=== PATIENT | female | born 1965 | race Hispanic/Latino ===

== ENCOUNTER 2022-03-14 08:19 | Outpatient (CLI) | payer MEDICARE, MEDICAID | END 2022-03-14 08:20 | disposition home or self-care (01) | LOC: CSHWCC 08:19 | PROVIDERS: ATTEND Nurse Practitioner Family | DX: T81.89XD Other complications of procedures, not elsewhere classified, subsequent encounter (principal) | CPT/HCPCS: 97139; G0463; 99203 ==

== ENCOUNTER 2022-03-21 08:14 | Outpatient (CLI) | payer MEDICARE, MEDICAID | END 2022-03-21 08:15 | disposition home or self-care (01) | LOC: CSHWCC 08:14 | PROVIDERS: ATTEND Nurse Practitioner Family | DX: T81.89XD Other complications of procedures, not elsewhere classified, subsequent encounter (principal) | CPT/HCPCS: 11043; 97605 ==

== ENCOUNTER 2022-03-28 08:36 | Outpatient (CLI) | payer MEDICARE, MEDICAID | END 2022-03-28 08:37 | disposition home or self-care (01) | LOC: CSHWCC 08:36 | PROVIDERS: ATTEND Nurse Practitioner Family | DX: T81.89XD Other complications of procedures, not elsewhere classified, subsequent encounter (principal) ==

== ENCOUNTER 2022-04-12 14:50 | Outpatient (CLI) | payer MEDICARE, MEDICAID | END 2022-04-12 14:51 | disposition home or self-care (01) | LOC: CSHWCC 14:50 | PROVIDERS: ATTEND Nurse Practitioner Family | DX: T81.89XD Other complications of procedures, not elsewhere classified, subsequent encounter (principal); Z89.432 Acquired absence of left foot ==

== ENCOUNTER 2022-05-25 10:02 | Outpatient (CLI) | payer MEDICARE, MEDICAID | END 2022-05-25 10:03 | disposition home or self-care (01) | LOC: CSHWCC 10:02 | PROVIDERS: ATTEND Nurse Practitioner Family | DX: T81.89XD Other complications of procedures, not elsewhere classified, subsequent encounter (principal); E11.621 Type 2 diabetes mellitus with foot ulcer; L97.429 Non-pressure chronic ulcer of left heel and midfoot with unspecified severity | CPT/HCPCS: 97139; G0463; 99213 ==

== ENCOUNTER 2022-06-22 10:40 | Outpatient (CLI) | payer MEDICARE, MEDICAID | END 2022-06-22 10:41 | disposition home or self-care (01) | LOC: CSHWCC 10:40 | PROVIDERS: ATTEND Nurse Practitioner Family | DX: T81.89XD Other complications of procedures, not elsewhere classified, subsequent encounter (principal); E11.621 Type 2 diabetes mellitus with foot ulcer; L97.429 Non-pressure chronic ulcer of left heel and midfoot with unspecified severity ==

== ENCOUNTER 2022-07-20 09:57 | Outpatient (CLI) | payer MEDICARE, MEDICAID | END 2022-07-20 09:58 | disposition home or self-care (01) | LOC: CSHWCC 09:57 | PROVIDERS: ATTEND Nurse Practitioner Family | DX: T81.89XD Other complications of procedures, not elsewhere classified, subsequent encounter (principal) | CPT/HCPCS: 99213; G0463 ==

== ENCOUNTER 2022-08-17 10:19 | Outpatient (CLI) | payer MEDICARE, MEDICAID | END 2022-08-17 10:20 | disposition home or self-care (01) | LOC: CSHWCC 10:19 | PROVIDERS: ATTEND Nurse Practitioner Family | DX: T81.89XD Other complications of procedures, not elsewhere classified, subsequent encounter (principal); Z89.432 Acquired absence of left foot ==

== ENCOUNTER 2022-08-24 08:49 | Outpatient (CLI) | payer MEDICARE, MEDICAID | END 2022-08-24 08:50 | disposition home or self-care (01) | LOC: CSHWCC 08:49 | PROVIDERS: ATTEND Nurse Practitioner Family | DX: E11.621 Type 2 diabetes mellitus with foot ulcer (principal); L97.519 Non-pressure chronic ulcer of other part of right foot with unspecified severity | CPT/HCPCS: 97139; G0463; 99212 ==

== ENCOUNTER 2022-08-31 10:45 | Outpatient (CLI) | payer MEDICARE, MEDICAID | END 2022-08-31 10:46 | disposition home or self-care (01) | LOC: CSHWCC 10:45 | PROVIDERS: ATTEND Nurse Practitioner Family | DX: E11.621 Type 2 diabetes mellitus with foot ulcer (principal); L97.519 Non-pressure chronic ulcer of other part of right foot with unspecified severity | CPT/HCPCS: 11042; 87070; 87205 ==

== ENCOUNTER 2022-09-06 10:03 | Outpatient (CLI) | payer MEDICARE, MEDICAID | END 2022-09-06 10:04 | disposition home or self-care (01) | LOC: CSHWCC 10:03 | PROVIDERS: ATTEND Nurse Practitioner Family | DX: E11.621 Type 2 diabetes mellitus with foot ulcer (principal); L97.519 Non-pressure chronic ulcer of other part of right foot with unspecified severity ==

== ENCOUNTER 2022-09-10 15:16 | Outpatient (CLI) | payer MEDICARE, MEDICAID | END 2022-09-10 15:17 | disposition home or self-care (01) | LOC: CSHWCC 15:16 | PROVIDERS: ATTEND Nurse Practitioner Family | DX: E11.621 Type 2 diabetes mellitus with foot ulcer (principal); L97.519 Non-pressure chronic ulcer of other part of right foot with unspecified severity ==

== ENCOUNTER 2022-10-31 14:11 | Outpatient (CLI) | payer MEDICARE, MEDICAID | END 2022-10-31 14:12 | disposition home or self-care (01) | LOC: CSHWCC 14:11 | PROVIDERS: ATTEND Nurse Practitioner Family | DX: T87.89 Other complications of amputation stump (principal) | CPT/HCPCS: 82962; 97139; G0463; 36416; 99213 ==

== ENCOUNTER 2022-12-31 08:17 | Outpatient (CLI) | payer MEDICARE, MEDICAID | END 2022-12-31 08:18 | disposition home or self-care (01) | LOC: CSHWCC 08:17 | PROVIDERS: ATTEND Nurse Practitioner Family | DX: T87.89 Other complications of amputation stump (principal) | CPT/HCPCS: 11042; 97139; G0463; 99212 ==

== ENCOUNTER 2023-01-09 12:36 | Outpatient (CLI) | payer MEDICARE, MEDICAID | END 2023-01-09 12:37 | disposition home or self-care (01) | LOC: CSHWCC 12:36 | PROVIDERS: ATTEND Nurse Practitioner Family | DX: T87.89 Other complications of amputation stump (principal) | CPT/HCPCS: 11042 ==